=== PATIENT | male | born 1980 | race Caucasian/White ===

== ENCOUNTER 2017-08-30 09:35 | Emergency (ER) | payer BC ==
[~2017-08-30] VITALS: Ht 180.3 cm; Wt 111.6 kg
[~2017-08-30 09:35] MED LIST: FLUT0.0529 NAE
[2017-08-30 09:40] VITALS: TEMP 37; Ht 180.3 cm; Wt 111.6 kg
[2017-08-30] MEDS ORDERED: FLUT50SP NAE (09:58)
[2017-08-30] MEDS ORDERED: LPD600 PO (09:58)
[2017-08-30 10:26] LABS: BASO % 0.7 %; BASO ABS # 0.04 K/uL (0-0.2); COMPLETE YES; EOS % 1.7 %; IG% 0.2 %; LYMPH % 39.3 %; LYMPH ABS # 2.28 K/uL (1.2-3.4); MEAN CELL VOLUME 85.4 fL (80-100); MEAN CORPUSCULAR HEMOGLOBIN 30.1 pg (25-34); MEAN CORPUSCULAR HGB CONC 35.2 g/dl (32-36); MEAN PLATELET VOLUME 10.6 fL (7.4-10.4); MONO % 7.2 %; NEUT % 50.9 %; PLATELET COUNT 254 K/uL (130-400); RED BLOOD COUNT 4.92 M/uL (4.7-6.1)
[2017-08-30 10:46] LABS: BUN/CREATININE RATIO 16.5 (10-20); CALCIUM 9.2 mg/dl (8.5-10.1); CREATININE 1.2 mg/dl (0.60-1.40); POTASSIUM 4.4 mmol/L (3.5-5.1)
[2017-08-30] MEDS ORDERED: SODIUM CHLORIDE 0.9% 1000ML 1,000 ML IV STA (11:23)
[2017-08-30] MEDS ORDERED: KETOROLAC TROMETHAMINE 30 MG/ML VIAL IV STA (11:23)
--- NOTE | 2017-08-30 11:56 | DIAGNOSTIC IMAGING REPORT ---
HEAD WITHOUT CONTRAST (CT) CLINICAL HISTORY: 37 years-old Male with jacobson after lifting . Acute headache status post lifting injury. TECHNIQUE: Multiple axial CT images of the head were obtained without contrast. A dose lowering technique was utilized adhering to the principles of ALARA. COMPARISON: CT cervical spine of same day. FINDINGS: No acute intracranial hemorrhage, midline shift, mass, large territorial ischemia or abnormal extra-axial collection. The calvarium is intact. The paranasal sinuses, mastoid air cells, and middle ear cavities are clear. IMPRESSION: No acute intracranial abnormality. The above report was generated using voice recognition software. It may contain grammatical, syntax or spelling errors. Electronically signed by: Rashawn Pena M.D. 08/30/2017 11:55 AM Dictated Date/Time: 08/30/2017 11:53 AM
--- NOTE | 2017-08-30 12:00 | DIAGNOSTIC IMAGING REPORT ---
CERVICAL SPINE W/O CT DOSE: 1173.42 mGy.cm CLINICAL HISTORY: 37 years-old Male with ? dissection . Acute neck pain and headache status post lifting injury. COMPARISON: CT head of same day TECHNIQUE: Multiple axial CT images of the cervical spine were obtained without contrast. A dose lowering technique was utilized adhering to the principles of ALARA. FINDINGS: Vertebral body heights and alignment are normal. No fracture or subluxation is identifed. Mild intervertebral disc space narrowing with posterior disc osteophyte complex formation noted at C3-C4, C4-C5 and C5-C6 and to lesser extent at C6-C7. No significant central canal or neural foraminal stenosis is identified. There is mild left-sided foraminal stenosis at C4-C5 and mild bilateral foraminal stenosis at C5-C6. There is reversal of the normal cervical lordosis centered at C4-C5. The cervical soft tissues appear unremarkable. The visualized lung apices appear clear. IMPRESSION: 1. No acute cervical spine fracture or subluxation. 2. Reversal of the normal cervical lordosis centered at C4-C5. 3. Mild multilevel posterior intervertebral disc space narrowing with posterior disc osteophyte complex formation as above. Mild left-sided foraminal stenosis at C4-C5 and mild bilateral foraminal stenosis at C5-C6. The above report was generated using voice recognition software. It may contain grammatical, syntax or spelling errors. Electronically signed by: Rashawn Pena M.D. 08/30/2017 11:59 AM Dictated Date/Time: 08/30/2017 11:55 AM
--- NOTE | 2017-08-30 12:05 | DIAGNOSTIC IMAGING REPORT ---
HEAD ANGIO WITH CONTRAST HISTORY: 37 years-old male presents with acute headache and neck pain following a lifting injury. Concern for possible dissection. COMPARISON: CT head of same day TECHNIQUE: CTA of the head was obtained following the intravenous administration of 117 mL Optiray 320. A dose lowering technique was used consistent with the principals of SHASTA. 3-D coronal and sagittal MIPS were obtained from the axial data set and cemented for review. Additional 3-D rendered images were generated from a separate workstation. All measurements were obtained according to NASCET criteria. FINDINGS: The bilateral internal carotid arteries, middle cerebral arteries, anterior cerebral arteries, imaged vertebral, basilar and posterior cerebral arteries appear normal and patent. No high-grade stenosis, aneurysm, proximal branch occlusion or dissection identified. Venous sinuses appear patent as well. No abnormal enhancement identified. Soft tissues are unremarkable. Bones appear intact. IMPRESSION: Unremarkable CTA of the head without evidence of aneurysm, dissection, high-grade stenosis or proximal branch occlusion. The above report was generated using voice recognition software. It may contain grammatical, syntax or spelling errors. Electronically signed by: Rashawn Pena M.D. 08/30/2017 12:04 PM Dictated Date/Time: 08/30/2017 12:00 PM
--- NOTE | 2017-08-30 12:16 | DIAGNOSTIC IMAGING REPORT ---
CT ANGIOGRAPHY OF THE NECK WITH CONTRAST CLINICAL HISTORY: Head and neck pain following lifting injury. COMPARISON STUDY: No previous studies for comparison. Technique: CT angiography of the carotid and vertebral arteries was obtained using VIOSO 320 IV and 3D reconstruction on an independent workstation. NASCET criteria was utilized. A dose lowering technique was utilized adhering to the principles of ALARA. Findings: The bilateral common carotid, internal carotid and vertebral arteries are patent. There is no stenosis or evidence for dissection within the neck. A right lobe thyroid nodule was previously biopsied. Lung apices are clear. There is no cervical lymphadenopathy. No cervical spine fracture is identified. IMPRESSION: Unremarkable CTA of the neck. No dissection or stenosis. Electronically signed by: Carlos Edwards M.D. 08/30/2017 12:14 PM Dictated Date/Time: 08/30/2017 12:07 PM
[2017-08-30] MEDS ORDERED: MoRPHine SULFATE 4 MG/ML 1 ML CARP\\VIAL IV STA (12:31)
[2017-08-30 13:01] VITALS: BP 140/80; PULSE 67; O2SAT 97
--- NOTE | 2017-08-30 14:14 | EMERGENCY ROOM VISIT NOTE ---
History Report prepared by Hanna: Abbie Mei Under the Supervision of: Dr. Flavio Lara D.O. First contact with patient: 09:47 Chief Complaint: NECK INJURY Stated Complaint: HEAD AND NECK PAIN (LIFTING AT GYM) History of Present Illness The patient is a 37 year old male who presents to the Emergency Room with complaints of an episode of a neck injury occurring [employer]. The patient works out at a [employer] gym. He was doing a shoulder workout this morning that ended with fast paced movements between multiple exercises. He was doing lifts and started to get tired. He did not keep his spine in a neutral position. He arched his neck to try and left the weight and states that he felt a pop on the right side of his neck. Initially afterwards his vision went black. He then had blurry vision, nausea, and a severe headache. The patient states that he is still experiencing right sided neck pain and a right sided headache. He rates his pain as a 10/10 in severity. He is still having some blurry vision. 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 He noticed this when getting his drivers license out of his walled in the ED. Turning his head to the right and looking down exacerbates his pain. He denies any lower back pain. Source of History: patient Onset: [employer] Position: neck Symptom Intensity: 10/10 Timing: other (episode) Modifying Factors (Worsening): movement (of head), other (weightlifting) Associated Symptoms: + headache, + nausea Note: Pt notes blurry vision. Review of Systems See HPI for pertinent positives & negatives. A total of 10 systems reviewed and were otherwise negative. Past Medical & Surgical Medical Problems: (1) No Known Active Medical Problems Family History No pertinent history stated. Social History Smoking Status: Never Smoker Marital Status: Housing Status: lives with significant other Current/Historical Medications Scheduled Gemfibrozil (Gemfibrozil), 600 MG PO BID Scheduled PRN Fluticasone Propionate (Nasal) (Eql Fluticasone Propionat), 2 SPRAYS PREMA DAILY PRN for Nasal Congestion Allergies Coded Allergies: No Known Allergies (Unverified , 08/30/17) Physical Exam Vital Signs Date Time Temp Pulse Resp B/P (MAP) Pulse Ox O2 Delivery O2 Flow Rate FiO2 08/30/17 13:01 67 18 140/80 97 08/30/17 11:44 71 18 130/91 98 08/30/17 09:40 37.0 72 18 140/95 99 Room Air Physical Exam GENERAL: alert, sitting up in bed, disheveled, well appearing, well nourished, no distress, non-toxic EYE EXAM: normal conjunctiva, PERRL and EOM's intact OROPHARYNX: no exudate, no erythema, lips, buccal mucosa, and tongue normal and mucous membranes are moist NECK: supple, no nuchal rigidity, no adenopathy. Pain worsens with flexion and rotation to the right. Right mid-cervical perispinal tenderness. LUNGS: Clear to auscultation. Normal chest wall mechanics HEART: no murmurs, S1 normal and S2 normal ABDOMEN: abdomen soft, non-tender, normo-active bowel sounds, no masses, no rebound or guarding. BACK: Back is symmetrical on inspection and there is no deformity, no midline tenderness, no CVA tenderness. SKIN: no rashes and no bruising UPPER EXTREMITIES: upper extremities are grossly normal. LOWER EXTREMITIES: No pitting edema. Flexion/extension of hip, knee, ankle, and EHL 5/5 bilaterally. NEURO EXAM: Normal sensorium, cranial nerves II-XII intact, normal speech, No drift. Finger to nose intact. Gross sensation intact. Flexion/extension at the shoulders, elbows, wrists, and grasp 5/5 bilaterally. Medical Decision & Procedures ER Provider Diagnostic Interpretation: Radiology results as stated below per my review and the radiologist's interpretation: HEAD WITHOUT CONTRAST (CT) CLINICAL HISTORY: 37 years-old Male with jacobson after lifting . Acute headache status post lifting injury. TECHNIQUE: Multiple axial CT images of the head were obtained without contrast. A dose lowering technique was utilized adhering to the principles of ALARA. COMPARISON: CT cervical spine of same day. FINDINGS: No acute intracranial hemorrhage, midline shift, mass, large territorial ischemia or abnormal extra-axial collection. The calvarium is intact. The paranasal sinuses, mastoid air cells, and middle ear cavities are clear. IMPRESSION: No acute intracranial abnormality. The above report was generated using voice recognition software. It may contain grammatical, syntax or spelling errors. Electronically signed by: Rashawn Pena M.D. 08/30/2017 11:55 AM Dictated Date/Time: 08/30/2017 11:53 AM CERVICAL SPINE W/O CT DOSE: 1173.42 mGy.cm CLINICAL HISTORY: 37 years-old Male with ? dissection . Acute neck pain and headache status post lifting injury. COMPARISON: CT head of same day TECHNIQUE: Multiple axial CT images of the cervical spine were obtained without contrast. A dose lowering technique was utilized adhering to the principles of ALARA. FINDINGS: Vertebral body heights and alignment are normal. No fracture or subluxation is identifed. Mild intervertebral disc space narrowing with posterior disc osteophyte complex formation noted at C3-C4, C4-C5 and C5-C6 and to lesser extent at C6-C7. No significant central canal or neural foraminal stenosis is identified. There is mild left-sided foraminal stenosis at C4-C5 and mild bilateral foraminal stenosis at C5-C6. There is reversal of the normal cervical lordosis centered at C4-C5. The cervical soft tissues appear unremarkable. The visualized lung apices appear clear. IMPRESSION: 1. No acute cervical spine fracture or subluxation. 2. Reversal of the normal cervical lordosis centered at C4-C5. 3. Mild multilevel posterior intervertebral disc space narrowing with posterior disc osteophyte complex formation as above. Mild left-sided foraminal stenosis at C4-C5 and mild bilateral foraminal stenosis at C5-C6. The above report was generated using voice recognition software. It may contain grammatical, syntax or spelling errors. Electronically signed by: Rashawn Pena M.D. 08/30/2017 11:59 AM Dictated Date/Time: 08/30/2017 11:55 AM HEAD ANGIO WITH CONTRAST HISTORY: 37 years-old male presents with acute headache and neck pain following a lifting injury. Concern for possible dissection. COMPARISON: CT head of same day TECHNIQUE: CTA of the head was obtained following the intravenous administration of 117 mL Optiray 320. A dose lowering technique was used consistent with the principals of ALARA. 3-D coronal and sagittal MIPS were obtained from the axial data set and cemented for review. Additional 3-D rendered images were generated from a separate workstation. All measurements were obtained according to NASCET criteria. FINDINGS: The bilateral internal carotid arteries, middle cerebral arteries, anterior cerebral arteries, imaged vertebral, basilar and posterior cerebral arteries appear normal and patent. No high-grade stenosis, aneurysm, proximal branch occlusion or dissection identified. Venous sinuses appear patent as well. No abnormal enhancement identified. Soft tissues are unremarkable. Bones appear intact. IMPRESSION: Unremarkable CTA of the head without evidence of aneurysm, dissection, high-grade stenosis or proximal branch occlusion. The above report was generated using voice recognition software. It may contain grammatical, syntax or spelling errors. Electronically signed by: Rashawn Pena M.D. 08/30/2017 12:04 PM Dictated Date/Time: 08/30/2017 12:[address] ANGIOGRAPHY OF THE NECK WITH CONTRAST CLINICAL HISTORY: Head and neck pain following lifting injury. COMPARISON STUDY: No previous studies for comparison. Technique: CT angiography of the carotid and vertebral arteries was obtained using Sentrinsic 320 IV and 3D reconstruction on an independent workstation. NASCET criteria was utilized. A dose lowering technique was utilized adhering to the principles of ALARA. Findings: The bilateral common carotid, internal carotid and vertebral arteries are patent. There is no stenosis or evidence for dissection within the neck. A right lobe thyroid nodule was previously biopsied. Lung apices are clear. There is no cervical lymphadenopathy. No cervical spine fracture is identified. IMPRESSION: Unremarkable CTA of the neck. No dissection or stenosis. Electronically signed by: Carlos Edwards M.D. 08/30/2017 12:14 PM Dictated Date/Time: 08/30/2017 12:07 PM Laboratory Results 08/30/17 10:12 Red Blood Count 4.92, Mean Corpuscular Volume 85.4, Mean Corpuscular Hemoglobin 30.1, Mean Corpuscular Hemoglobin Concent 35.2, Mean Platelet Volume 10.6, Neutrophils (%) (Auto) 50.9, Lymphocytes (%) (Auto) 39.3, Monocytes (%) (Auto) 7.2, Eosinophils (%) (Auto) 1.7, Basophils (%) (Auto) 0.7, Neutrophils # (Auto) 2.95, Lymphocytes # (Auto) 2.28, Monocytes # (Auto) 0.42, Eosinophils # (Auto) 0.10, Basophils # (Auto) 0.04 08/30/17 10:12 Test 08/30/17 10:12 White Blood Count 5.80 K/uL (4.8-10.8) Red Blood Count 4.92 M/uL (4.7-6.1) Hemoglobin 14.8 g/dL (14.0-18.0) Hematocrit 42.0 % (42-52) Mean Corpuscular Volume 85.4 fL (80-100) Mean Corpuscular Hemoglobin 30.1 pg (25-34) Mean Corpuscular Hemoglobin Concent 35.2 g/dl (32-36) Platelet Count 254 K/uL (130-400) Mean Platelet Volume 10.6 fL (7.4-10.4) Neutrophils (%) (Auto) 50.9 % Lymphocytes (%) (Auto) 39.3 % Monocytes (%) (Auto) 7.2 % Eosinophils (%) (Auto) 1.7 % Basophils (%) (Auto) 0.7 % Neutrophils # (Auto) 2.95 K/uL (1.4-6.5) Lymphocytes # (Auto) 2.28 K/uL (1.2-3.4) Monocytes # (Auto) 0.42 K/uL (0.11-0.59) Eosinophils # (Auto) 0.10 K/uL (0-0.5) Basophils # (Auto) 0.04 K/uL (0-0.2) RDW Standard Deviation 40.9 fL (36.4-46.3) RDW Coefficient of Variation 13.1 % (11.5-14.5) Immature Granulocyte % (Auto) 0.2 % Immature Granulocyte # (Auto) 0.01 K/uL (0.00-0.02) Anion Gap 6.0 mmol/L (3-11) Est Creatinine Clear Calc Drug Dose 105.0 ml/min Estimated GFR () 87.8 Estimated GFR (Non- 75.7 BUN/Creatinine Ratio 16.5 (10-20) Calcium Level 9.2 mg/dl (8.5-10.1) Laboratory results per my review. Medications Administered Medications (Trade) Dose Ordered Sig/Rubina Route Start Time Stop Time Status Last Admin Dose Admin Sodium Chloride 1,000 ml @ 999 mls/hr Q1H1M STAT IV 08/30/17 11:23 08/30/17 12:23 DC 08/30/17 11:45 999 MLS/HR Ketorolac Tromethamine (Toradol Inj) 30 mg NOW STAT IV 08/30/17 11:23 08/30/17 11:24 DC 08/30/17 11:47 30 MG ED Course ED COURSE: Vital signs were reviewed and showed hypertensive. The patients medical record was reviewed The above diagnostic studies were performed and reviewed. ED treatments and interventions as stated above. 0947: The patient was evaluated in room C1B. A complete history and physical examination was performed. 1123: Toradol 30 mg IV, NSS 1000 ml @ 999 mls/hr IV 1204: I updated the patient on his results and answered all of his questions. 1231: Morphine sulfate 4 mg IV - pt declined. 1247: Upon reevaluation, the patient is feeling better. I discussed my findings with the patient and he understands and agrees with the treatment plan. Based on the patients age, coexisting illnesses, exam and lab findings the decision to treat as an outpatient was made. The patient remained stable while under my care. The patient appeared well at the time of discharge. Medical Decision Differential diagnoses includes but is not limited to lumbar radiculopathy, muscle strain, facture, cauda equina, mass, and disc herniation. Patient is a 37-year-old male who presents to ER who was working out at [employer]. He felt a pop in back of his neck in the right paraspinal region. Following this he felt very nauseous a warm feeling going up the back of his neck into his head. He had a severe headache and vision went black for a split second and then turned into blurry vision. He has had this happen before in the past. He complains of fine motor awkwardness in the right extremity. Patient on my neurologic exam is completely neurologically intact. No focal deficit. No weakness in extremities. CT head and neck showed no acute fractures or bleed. CTA of the neck and head show no dissections or aneurysms. Patient was given Toradol and fluids. He did feel better. There is discharged to follow-up with PCP. I do not believe that this is a stroke. Pain is lateral within the paraspinal musculature of the neck. Colora no benefit to placing cervical collar at this time. Discussed with Pt concerning signs and symptoms to watch out for. Pt was instructed to follow up with their PCP and discussed with the patient their option to return to the ED at anytime for persistent or worsening symptoms. The appropriate anticipatory guidance and out- patient management, including indications for return to the emergency department , were explained at length to the patient and understood. Medication Reconcilliation Current Medication List: was personally reviewed by me Blood Pressure Screening Patient's blood pressure: Elevated blood pressure Blood pressure disposition: Elevated BP felt to be situational Impression Primary Impression: Neck pain Scribe Attestation The scribe's documentation has been prepared under my direction and personally reviewed by me in its entirety. I confirm that the note above accurately reflects all work, treatment, procedures, and medical decision making performed by me. Departure Information Dispostion Home / Self-Care Referrals Manuelito Lamb M.D.(JOAN) (PCP) Forms HOME CARE DOCUMENTATION FORM, IMPORTANT VISIT INFORMATION, WORK / SCHOOL INSTRUCTIONS Patient Instructions [facility] Strain - [facility] Additional Instructions Please follow up with your primary care doctor with in the next 24 hours. Any worsening of your symptoms, please return to the ED immediately. This includes any fevers greater than 100.4, worsening pain, weakness or numbness in her arms or legs, persistent nausea, vomiting, unable to eat or drink, or any other concerning signs or symptoms from your standpoint. Please take Motrin or Tylenol as needed for pain
== END 2017-08-30 13:02 | disposition home or self-care (01) ==
LOC: C.EDB 09:37 → C.EDC 13:02
DX: M54.2 Cervicalgia (principal)